=== PATIENT | female | born 2000 | race Caucasian/White ===

== ENCOUNTER 2022-10-07 09:11 | Outpatient (CLI) | payer OTHER, SELFPAY ==
--- NOTE | 2022-10-07 09:40 | XR_ITS ---
WS: [id number] XR ribs LT 2V* [id number] REASON FOR EXAM: LEFT SIDED RIB PAIN FINDINGS: No fracture or other focal bone lesion of the left ribs. No abnormality of the underlying left lung and pleura. XR/XR ribs LT 2V* [id number] IMPRESSION: No significant abnormality.
== END 2022-10-07 09:12 | disposition home or self-care (01) ==
LOC: RAD 09:34
PROVIDERS: PCP Family Medicine; Visit Provider Family Medicine
DX: R07.81 Pleurodynia (principal)
CPT/HCPCS: 71100